=== PATIENT | male | born 1960 | race Caucasian/White ===

== ENCOUNTER 2023-07-30 01:44 | Day surgery (SDC) | payer BC, SELFPAY ==
[2023-07-21 13:56] VITALS: BMI 34.6
[2023-07-30 09:32] VITALS: BP 125/72; PULSE 106; RESP 16; TEMP 36; O2SAT 93; BMI 34.2
[2023-07-30] MEDS: LACTATED RINGERS 1,000 ML 150 ML IV CONT (09:54)
[2023-07-30 09:56] LABS: Glucose Point of Care 217 mg/dl (65-105)
--- NOTE | 2023-07-30 10:15 | WPDANESEPPF ---
Anes - Initial Pre Proc Eval Procedure: Operation Date: 07/30/23 11:30 Proposed Procedures p Esophagogastroduodenoscopy - Son Chopra MD Date/Time: 07/30/23 10:15 Surgeon: Son Chopra MD Pre Op Diagnosis: Dysphagia Patient Data Age: 63 Gender: M Height: 1.8 m Weight: 111.4 kg Last Vital Signs Temp 36.0 C L 07/30/23 09:32 Pulse 106 H 07/30/23 09:32 Resp 16 07/30/23 09:32 BP 125/72 07/30/23 09:32 Pulse Ox 93 07/30/23 09:32 O2 Del Method Room Air 07/30/23 09:32 Allergies Allergy/AdvReac Type Severity Reaction Status Date / Time fentanyl Allergy Intermediate Hypotension Verified 07/30/23 09:39 Johnson mushrooms Allergy Intermediate Nausea and Uncoded 07/30/23 09:39 Vomiting Home Medications Medication Instructions Recorded Confirmed Type albuterol sulfate 90 mcg/actuation 1 puff inhalation Q4H PRN 07/14/23 07/30/23 History aerosol inhaler Shortness Of Breath aspirin 325 mg tablet 325 mg PO DAILY 07/14/23 07/30/23 History metformin 500 mg tablet 1,000 mg PO BID 07/14/23 07/30/23 History umeclidinium 62.5 mcg-vilanterol 1 inh inhalation DAILY 07/14/23 07/30/23 History 25 mcg/actuation powdr for inhalation (Anoro Ellipta) atorvastatin 80 mg tablet 80 mg PO DAILY 07/21/23 07/30/23 History cetirizine 10 mg capsule (Zyrtec) 10 mg PO DAILY 07/21/23 07/30/23 History nystatin 100,000 unit/mL oral 5 ml PO QID 07/21/23 07/30/23 History suspension oxycodone 5 mg tablet 5 mg PO Q4H PRN Pain 07/21/23 07/30/23 History tizanidine 2 mg tablet 2 mg PO BID PRN Spasms 07/21/23 07/30/23 History Laboratory Tests 07/30/23 09:47 POC Capillary Glucose 217 H mg/dl (65-105) Patient hx anesthesia problems: none Family hx anesthesia problems: none Results Review: All pre-operative results and documents have been reviewed as part of the pre-operative evaluation. [facility] Past Medical History Medical History Aftercare following bilateral wrist joint replacement surgery Allergy Blood clot in vein COPD (chronic obstructive pulmonary disease) Diabetes Dysphagia GERD (gastroesophageal reflux disease) History of IBS IBS (irritable bowel syndrome) Migraines Skin cancer Stroke (cerebrum) Surgical History Surgical History History of left-sided carotid endarterectomy Status post right knee replacement Social History Social History Smoking packs per day: 1.5 Smoking cigarettes per day: 30.0 Years smoked: 40 Smoking pack-years: 60.00 Smoking status: Former smoker Tobacco type: cigarettes Alcohol intake: current Substance use: never Substance use type: does not use Living arrangements: with family Spiritual care concerns: No Anes - Eval Final PreProcedure Day of Procedure 07/30/23 10:15 Patient weight: obese Heart: regular rate and rhythm Lungs: clear to auscultation Airway: Mallampati scale class II Neurological: alert and oriented Last oral intake: >/= 8 hours ASA classification: III Emergent: no Anesthetic plan: proceed Anesthesia type and monitoring: general GIVS and standard monitoring Results Review: All pre-operative results and documents have been reviewed as part of the pre-operative evaluation. Informed Consent: The patient's anesthetic plan and its attendant risks and benefits were discussed with the patient/family/POA. Questions were solicited and answers provided to the satisfaction of the patient/family/POA.
--- NOTE | 2023-07-30 10:17 | PM.HPGS ---
History of Present Illness History of Present Illness Consent: Risks, benefits, and alternatives have been discussed and questions answered. Patient agrees to proceed with procedure. Chief complaint: Dysphagia Narrative: Kike Perez is a 63 year old male with dysphagia, never had egd, taking ppi only as needed Review of Systems Review of Systems: All systems reviewed & are unremarkable except as noted in HPI and below PMFSH Past Medical History Medical History Aftercare following bilateral wrist joint replacement surgery Allergy Blood clot in vein COPD (chronic obstructive pulmonary disease) Diabetes Dysphagia GERD (gastroesophageal reflux disease) History of IBS IBS (irritable bowel syndrome) Migraines Skin cancer Stroke (cerebrum) Surgical History Surgical History History of left-sided carotid endarterectomy Status post right knee replacement Social History Social History Smoking packs per day: 1.5 Smoking cigarettes per day: 30.0 Years smoked: 40 Smoking pack-years: 60.00 Smoking status: Former smoker Tobacco type: cigarettes Alcohol intake: current Substance use: never Substance use type: does not use Living arrangements: with family Spiritual care concerns: No Meds Home Medications and Allergies Home Medications Medication Instructions Recorded Confirmed Type albuterol sulfate 90 mcg/actuation 1 puff inhalation Q4H PRN 07/14/23 07/30/23 History aerosol inhaler Shortness Of Breath aspirin 325 mg tablet 325 mg PO DAILY 07/14/23 07/30/23 History metformin 500 mg tablet 1,000 mg PO BID 07/14/23 07/30/23 History umeclidinium 62.5 mcg-vilanterol 1 inh inhalation DAILY 07/14/23 07/30/23 History 25 mcg/actuation powdr for inhalation (Anoro Ellipta) atorvastatin 80 mg tablet 80 mg PO DAILY 07/21/23 07/30/23 History cetirizine 10 mg capsule (Zyrtec) 10 mg PO DAILY 07/21/23 07/30/23 History nystatin 100,000 unit/mL oral 5 ml PO QID 07/21/23 07/30/23 History suspension oxycodone 5 mg tablet 5 mg PO Q4H PRN Pain 07/21/23 07/30/23 History tizanidine 2 mg tablet 2 mg PO BID PRN Spasms 07/21/23 07/30/23 History Allergies Allergy/AdvReac Type Severity Reaction Status Date / Time fentanyl Allergy Intermediate Hypotension Verified 07/30/23 09:39 Johnson mushrooms Allergy Intermediate Nausea and Uncoded 07/30/23 09:39 Vomiting Vital Signs Vital Signs - 24 hr 07/30/23 09:32 Temperature 96.8 F L Pulse Rate 106 H Respiratory Rate 16 Blood Pressure 125/72 Pulse Oximetry 93 Oxygen Delivery Room Air Exam Const: General: comfortable and no acute distress HENMT: Face/Nose/Sinus: Normal nares present Eyes: General: appearance normal, both eyes and all related structures Neck: Neck: no JVD Resp: Auscultation: clear to auscultation bilaterally Cardio: Rate: regular rate Rhythm: regular rhythm GI: Inspection: non-distended GI Palp: Yes Soft to palpation Skin: General skin exam: normal color Neuro: General: gait normal Speech: normal speech Extrem: General: normal to inspection Psych: Mental Status: mental status grossly normal Assessment and Plan Assessment and plan (1) Dysphagia: Code(s): R13.10 - Dysphagia, unspecified Status: Acute Assessment and Plan: egd
[2023-07-30 10:29] VITALS: BP 110/61; PULSE 93; RESP 21; O2SAT 93
[2023-07-30 10:39] VITALS: BP 111/65; PULSE 86; RESP 22; O2SAT 93
[2023-07-30 10:49] VITALS: BP 126/83; PULSE 89; RESP 20; O2SAT 95
== END 2023-07-30 10:55 | disposition home or self-care (01) ==
PROVIDERS: PCP Family Medicine; Referring Provider Nurse Practitioner Family; Visit Provider Internal Medicine Gastroenterology
PROC: 0DJ08ZZ Inspection of Upper Intestinal Tract, Via Natural or Artificial Opening Endoscopic (ICD-10-PCS; CPT 43235; principal; 2023-07-30 11:30)
DX: K29.70 Gastritis, unspecified, without bleeding (principal); J44.9 Chronic obstructive pulmonary disease, unspecified; E11.9 Type 2 diabetes mellitus without complications; K21.9 Gastro-esophageal reflux disease without esophagitis; Z86.73 Personal history of transient ischemic attack (TIA), and cerebral infarction without residual deficits; Z87.891 Personal history of nicotine dependence; E66.9 Obesity, unspecified; Z68.34 Body mass index [BMI] 34.0-34.9, adult; Z79.51 Long term (current) use of inhaled steroids; Z79.84 Long term (current) use of oral hypoglycemic drugs; Z79.82 Long term (current) use of aspirin
CPT/HCPCS: 43239; 82948; 88305; J2704; J7120

== ENCOUNTER 2023-09-27 07:54 | Outpatient (CLI) | payer BC, SELFPAY ==
--- NOTE | ~2023-09-27 | XR_ITS ---
EXAMINATION: XR barium swallow modified DATE: 09/27/2023 08:39 INDICATION: Dysphagia, unspecified. TECHNIQUE: The patient was given barium-containing material of multiple consistencies to swallow by t je speech pathologist while I performed fluoroscopy. Fluoroscopy exposure time was 1.1 minutes. The n umber of fluoroscopy images saved to the PACS was 1. Dose-area product was 1.196 Gy-cm^2. FINDINGS: The oral stage, pharyngeal stage, and cervical/esophageal stage of the swallow are normal. IMPRESSION: 1. Normal modified barium swallow. 2. Please refer to the speech therapy report for recommendations. Reviewed, dictated and finalized at location A.
--- NOTE | 2023-09-28 10:02 | REHSTMBS ---
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 Patient reports he had several strokes in December of 2022, then a carotid endarderectomy 04/2023 and since then he reports his neck seems to be numb. Patient reports choking on ground hamburger, rice, chips, crackers, and fried foods with batter coating. He indicated he does not remember having swallowing issues prior to the strokes and surgery. Patient was viewed in the lateral position to the level of C5/C6. He was presented with uncontrolled thin liquid per cup, and per straw, pudding mixed with semi-solid contrast medium, and then crackers and fruit cocktail coated with the pudding. He exhibited quick swallows with no significant pharyngeal residue and no penetration/ aspiration throughout this evaluation. Patient was instructed in the use of head flexion, given a list of safe swallowing strategies, and instructed in the use of three initial swallowing exercises as he voices a real concern with swallowing solids. Patient may consider additional outpatient Speech Therapy at [facility], or a closer facility such as [facility] or [facility] for additional exercises and further instruction to facilitate improved swallowing of the above-mentioned consistencies. He voiced understanding but also stated he is not driving at this time and may have difficulty finding rides to treatment facilities. Please discuss options with patient. Thank you for this referral.
== END 2023-09-27 07:55 | disposition home or self-care (01) ==
PROVIDERS: PCP Family Medicine; Visit Provider Nurse Practitioner Family
DX: R13.10 Dysphagia, unspecified (principal)
CPT/HCPCS: 92611